=== PATIENT | male | born 1980 | race African-American/Black ===

== ENCOUNTER 2021-07-12 15:35 | Emergency (ER) | payer OTHER ==
[~2021-07-12] VITALS: Ht 154.9 cm; Wt 99.3 kg
[~2021-07-12 15:35] MED LIST: AMOX500C85 PO; BENZSOL4 OT; FLOXIN OT; LORA10TA3 PO
[2021-07-12 17:06] LABS: PLATELET COUNT 330 K/uL (142-355)
[2021-07-12 17:57] LABS: POTASSIUM 3.9 mmol/L (3.6-5.2); SODIUM 135 mmol/L (136-145)
[2021-07-12 23:00] VITALS: TEMP 99.1
[2021-07-13 12:45] LABS: PLATELET COUNT 349 K/uL (142-355)
[2021-07-13 12:51] LABS: POTASSIUM 3.7 mmol/L (3.6-5.2)
[2021-07-13 16:55] VITALS: BP 135/76
== END 2021-07-13 16:55 | disposition home or self-care (01) ==
LOC: ED 15:35
PROVIDERS: Emergency Medicine Emergency Medical Services
DX: R06.09 Other forms of dyspnea (principal); U07.1 COVID-19; J12.82 Pneumonia due to coronavirus disease 2019
CPT/HCPCS: 36415; 36600; 80048; 80053; 82805; 83605; 83735; 83880; 84484; 85027; 85379; 86140; 87040; 87635; 93005; 96360; 96361; 96365; 96366; 96375; 99284; J1100; J1956; J2405; J2930; J3370; U0003

== ENCOUNTER 2021-07-14 14:58 | Outpatient (CLI) | payer OTHER ==
[~2021-07-14] VITALS: Ht 154.9 cm; Wt 99.3 kg
== END 2021-07-14 20:21 | disposition home or self-care (01) ==
LOC: INF 14:58
PROVIDERS: ATTEND Internal Medicine Endocrinology, Diabetes & Metabolism
DX: Z23 Encounter for immunization (principal); U07.1 COVID-19; J12.82 Pneumonia due to coronavirus disease 2019
CPT/HCPCS: 96365

== ENCOUNTER 2021-07-15 14:03 | Outpatient (CLI) | payer OTHER ==
[~2021-07-15] VITALS: Ht 154.9 cm; Wt 45.0 kg
[2021-07-15 14:43] LABS: POTASSIUM 3.2 mmol/L (3.6-5.2)
== END 2021-07-15 22:05 | disposition home or self-care (01) ==
LOC: INF 14:03
PROVIDERS: ATTEND Family Medicine
DX: U07.1 COVID-19 (principal); J12.82 Pneumonia due to coronavirus disease 2019
CPT/HCPCS: 80053; 96365

== ENCOUNTER 2021-07-16 13:44 | Outpatient (CLI) | payer OTHER ==
[2021-07-16 14:41] LABS: POTASSIUM 3.4 mmol/L (3.6-5.2)
== END 2021-07-16 21:18 | disposition home or self-care (01) ==
LOC: INF 13:44
PROVIDERS: ATTEND Family Medicine
DX: Z23 Encounter for immunization (principal); U07.1 COVID-19
CPT/HCPCS: 36415; 80053; 96365

== ENCOUNTER 2021-07-17 13:16 | Outpatient (CLI) | payer OTHER ==
[2021-07-17 14:38] LABS: POTASSIUM 3.7 mmol/L (3.6-5.2)
== END 2021-07-17 19:05 | disposition home or self-care (01) ==
LOC: INF 13:16
PROVIDERS: ATTEND Family Medicine
DX: Z23 Encounter for immunization (principal); U07.1 COVID-19
CPT/HCPCS: 80053; 96365

== ENCOUNTER 2022-02-13 07:13 | Emergency (ER) | payer OTHER ==
[~2022-02-13] VITALS: Ht 154.9 cm; Wt 99.8 kg
[2022-02-13 07:18] VITALS: BP 141/90; TEMP 97.5
== END 2022-02-13 08:00 | disposition home or self-care (01) ==
LOC: ED 07:13
DX: S61.215A Laceration without foreign body of left ring finger without damage to nail, initial encounter (principal); W26.8XXA Contact with other sharp object(s), not elsewhere classified, initial encounter; Y93.89 Activity, other specified; Y92.89 Other specified places as the place of occurrence of the external cause; Z23 Encounter for immunization
CPT/HCPCS: 90715; 96372; 99283